=== PATIENT | female | born 1950 | race Caucasian/White ===

== ENCOUNTER 2018-05-27 07:30 | Day surgery (SDC) | payer MEDICARE ==
[~2018-05-27] VITALS: Ht 160 cm; Wt 103.6 kg
[2018-05-27] VITALS (12 sets, daily range): BP systolic 133–154; BP diastolic 50–96
[2018-05-27] MEDS ORDERED: diphenhydrAMINE 25mg capsule PO PRN (08:05)
[2018-05-27] MEDS ORDERED: sodium bicarbonate (8.4%) inj. 150 ML in dextrose 5%-water 1,000 ML IV ONE (08:05)
[2018-05-27] MEDS ORDERED: HYDR-4353 PO (08:17)
[2018-05-27] MEDS ORDERED: LISI40TA4 PO (08:17)
[2018-05-27] MEDS ORDERED: SIMV10TA2 PO (08:17)
[2018-05-27] MEDS ORDERED: GABA-532 PO (08:17)
[2018-05-27] MEDS ORDERED: AMIT-189 PO (08:17)
[2018-05-27] MEDS ORDERED: TIZA4CAP PO (08:17)
[2018-05-27 08:59] LABS: BASOPHILS # (AUTO) 0.1 X10'3 (0-0.2); EOSINOPHILS # (AUTO) 0.3 X10'3 (0-0.9); EOSINOPHILS % (AUTO) 3.3 % (0-6); HEMATOCRIT 36.8 % (35.0-45.0); HEMOGLOBIN 12.1 g/dl (12.0-16.0); LYMPHOCYTES # (AUTO) 4.4 X10'3 (1.1-4.8); LYMPHOCYTES % (AUTO) 52.2 % (21-51); MEAN CORPUSCULAR HEMOGLOBIN 30.3 PG (27.0-31.0); MEAN CORPUSCULAR HGB CONC 32.8 g/dL (33.0-36.5); MEAN CORPUSCULAR VOLUME 92.3 FL (78-98); MEAN PLATELET VOLUME 8.9 FL (7.4-10.4); MONOCYTES # (AUTO) 0.5 X10'3 (0-0.9); NEUTROPHILS # (AUTO) 3.1 X10'3 (1.8-7.7); NEUTROPHILS % (AUTO) 37.5 % (42-75); PLATELET COUNT 306 X10'3 (140-440); RED BLOOD COUNT 3.99 X10'6 (4.20-5.60); RED CELL DISTRIBUTION WIDTH 13.5 % (11.5-14.5); WHITE BLOOD COUNT 8.4 X10'3 (4.5-11.0)
[2018-05-27 09:02] LABS: ALBUMIN 3.4 G/DL (3.4-5.0); ANION GAP 10 (8-16); BLOOD UREA NITROGEN 16 MG/DL (7-18); CALCIUM 8.9 MG/DL (8.5-10.1); CHLORIDE 103 MMOL/L (99-107); GLUCOSE 103 MG/DL (70-104); MAGNESIUM 1.8 MG/DL (1.5-2.4); SODIUM 137 MMOL/L (135-145); TOTAL CARBON DIOXIDE 24.3 MMOL/L (24-32); eGFR 56 ML/MIN
[2018-05-27] MEDS ORDERED: LIDOcaine 1% (10mg/ml)w/preservative injection 20ml MDV ONE (09:02)
[2018-05-27] MEDS ORDERED: iohexol 350 MG/ML 50ML vial IV ONE (09:02)
[2018-05-27] MEDS ORDERED: iohexol 350MG/ML 100ml bottle IV ONE (09:02)
[2018-05-27] MEDS ORDERED: midazolam 2 mg/2 ml injection ONE ×2 (09:02→09:35)
[2018-05-27] MEDS ORDERED: fentaNYL/PF 50MCG/1 ML 2ML syringe ONE ×2 (09:02→09:42)
[2018-05-27 09:18] LABS: PROTHROMBIN TIME 10.5 SECONDS (9.0-12.0)
[2018-05-27] MEDS ORDERED: diphenhydrAMINE 50 mg/ml inj ONE (09:24)
[2018-05-27] MEDS ORDERED: proCHLORperazine 10 MG/2 ml inj ONE (09:29)
[2018-05-27 09:37] LABS: POTASSIUM 4.3 MMOL/L (3.5-5.1)
[2018-05-27 10:21] LABS: LARGE PLATELETS FEW; PLATELET ESTIMATE NORMAL; TOTAL CELLS COUNTED 100
[2018-05-27] MEDS ORDERED: normal saline 1000ml 1,000 ML IV SCH (10:38)
== END 2018-05-27 13:30 | disposition home or self-care (01) ==
LOC: SSTAY O 07:30
PROVIDERS: ATTEND Internal Medicine Cardiovascular Disease
DX: I20.9 Angina pectoris, unspecified (principal); I10 Essential (primary) hypertension; E78.5 Hyperlipidemia, unspecified; Z83.3 Family history of diabetes mellitus; Z88.6 Allergy status to analgesic agent; Z88.8 Allergy status to other drugs, medicaments and biological substances; G89.4 Chronic pain syndrome
CPT/HCPCS: 36415; 80048; 83735; 85025; 85610; 93005; 93458; 99152; 99153; A6257; J0780; J1200; J1644; J2001; J2250; J3010; J7030; Q9967; A4620; C1760; C1769; C1894